=== PATIENT | female | born 1975 | race Caucasian/White ===

== ENCOUNTER 2016-10-11 13:56 | Emergency (ER) | payer BC ==
[~2016-10-11] VITALS: Ht 152.4 cm; Wt 87.2 kg
[2016-10-11 15:40] LABS: HEMATOCRIT 44.7 % (36.0-46.0); MCH 31.6 PG (29.0-34.0); MCHC 33.6 G/DL (30.0-36.0); MCV 94.3 FL (83-99); MEAN PLAT.VOLUME 10.5 uM^3 (9.5-12.4); PLATELET COUNT 185 K/uL (156-360); RBC DIS.WIDTH-CV 11.9 % (11.8-14.6); RBC DIS.WIDTH-SD 41.5 % (39-53); RED BLOOD COUNT 4.74 M/uL (3.80-5.20); WHITE BLOOD COUNT 8.1 K/uL (4.1-10.2)
[2016-10-11 15:48] LABS: CHLORIDE 109 mEq/L (99-109)
[2016-10-11 15:49] LABS: AMYLASE 68 IU/L (1-118); POTASSIUM 3.7 mEq/L (3.7-5.4); SODIUM 138 mEq/L (136-147)
[2016-10-11 15:51] LABS: GLUCOSE 93 mg/dL (70-99)
[2016-10-11 15:52] LABS: ANION GAP 8 MEQ/L (2-14)
[2016-10-11 15:53] LABS: TOTAL BILIRUBIN 0.5 mg/dL (0.0-1.0)
[2016-10-11 15:54] LABS: ALKALINE PHOSPHATASE 45 IU/L (3-129); GFR ESTIMATE (CALCULATED) > 59 mL/min/
[2016-10-11 15:56] LABS: UREA NITROGEN (BUN) 9 mg/dL (9-23)
[2016-10-11 15:58] LABS: LIPASE 47 U/L (1.0-51.0)
[2016-10-11 16:10] VITALS: BP 131/81
[2016-10-11 16:23] LABS: ADD MIUA? YES; BILIRUBIN NEGATIVE; BLOOD NEGATIVE; COLOR STRAW ((YELLOW)); GLUCOSE (STRIP) NEGATIVE; KETONES NEGATIVE; LEUKOCYTES SMALL; NITRITE NEGATIVE; PROTEIN (STRIP) NEGATIVE; SPECIFIC GRAVITY 1.005 (1.000-1.030); UROBILINOGEN 0.2 MG/DL (0.2-1.0)
[2016-10-11 16:29] LABS: BACTERIA RARE /HPF; EPITHELIAL CELLS 1+ /HPF; MUCUS TRACE /LPF; RED BLOOD CELLS 0-5 /HPF (0-5); UCUL ADDED? NO; WHITE BLOOD CELLS 0-5 /HPF (0-5)
[2016-10-11] MEDS ORDERED: ZOFRAN ODT4 MG PO (16:54)
[2016-10-11] MEDS ORDERED: BENTYL20 MG PO (16:59)
== END 2016-10-11 17:51 | disposition home or self-care (01) ==
LOC: EME 13:56
PROVIDERS: Nurse Practitioner Family
DX: N20.0 Calculus of kidney (principal); R10.11 Right upper quadrant pain; R11.0 Nausea; E78.5 Hyperlipidemia, unspecified; F17.200 Nicotine dependence, unspecified, uncomplicated
CPT/HCPCS: 74177; 80053; 81003; 82150; 83690; 85027; 99281; 99284; J1885; J2405; J7030